=== PATIENT | female | born 1950 | race Caucasian/White ===

== ENCOUNTER 2017-02-09 12:59 | Emergency (ER) | payer BC ==
[~2017-02-09] VITALS: Ht 170.2 cm; Wt 91.6 kg
--- NOTE | 2017-02-09 13:50 | PHYS DOC ---
Past Medical History Past Medical History: Arthritis, Other Additional Past Medical Histor: RA Past Surgical History: , Hysterectomy, Other Additional Past Surgical Histo: right finger joint implant, deviated septum repair Alcohol Use: Rarely Drug Use: None Adult General Chief Complaint Chief Complaint: ANKLE PROBLEM HPI HPI 66-year-old female presenting to the emergency department today after sustaining injury to her right leg. She was previously seen at [facility] and diagnosed with a trimalleolar fracture status post reduction and splinting. She has pain in her right ankle that is sharp moderate worse with movement and alleviated by rest. Review of systems is negative for chest pain shortness of breath abdominal pain or knee pain. All other review of systems is negative unless otherwise noted in history of present illness. Review of Systems Review of Systems SEE ABOVE. Allergies Allergies Allergies Coded Allergies Type Severity Reaction Last Updated Verified Penicillins Allergy Intermediate hives 02/09/17 Yes Physical Exam Physical Exam Constitutional: Well developed, well nourished, no acute distress, non-toxic appearance. HENT: Normocephalic, atraumatic, bilateral external ears normal, oropharynx moist, no oral exudates, nose normal. Eyes: PERRLA, EOMI, conjunctiva normal, no discharge. [] Neck: Normal range of motion, no tenderness, supple, no stridor. Cardiovascular:Heart rate regular rhythm, no murmur Lungs & Thorax: Bilateral breath sounds clear to auscultation [] Abdomen: Bowel sounds normal, soft, no tenderness, no masses, no pulsatile masses. [] Skin: Warm, dry, no erythema, no rash. Back: No tenderness, no CVA tenderness. Extremities: The patient's right lower extremity is warm and well perfused with a palpable pulse. 2 second cap refill present. The patient currently has a splint on her right lower ankle. The patient's extremity is in anatomic alignment. Nontender knee proximally. Neurologic: Alert and oriented X 3, normal motor function, normal sensory function, no focal deficits noted. Psychologic: Affect normal, judgement normal, mood normal. [] Current Patient Data Vital Signs Vital Signs Date Time Temp Pulse Resp B/P Pulse Ox O2 Delivery O2 Flow Rate FiO2 02/09/17 13:02 98.8 108 18 174/77 98 Room Air 98.8 EKG EKG [] Radiology/Procedures Radiology/Procedures [] Course & Med Decision Making Course & Med Decision Making Pertinent Labs and Imaging studies reviewed. (See chart for details) [] 66-year-old female who sustained a right trimalleolar fracture who is currently is neurovascularly intact. I discussed the case with Doctor Yanet. He asked that I obtained postreduction films and stated he would see the patient. Postreduction films were obtained in the emergency department from reduction performed at outside facility obtained. Doctor Yanet had not evaluated the patient prior to the patient being signed out at 3 PM with plans to follow-up on his recommendations. Dragon Disclaimer Dragon Disclaimer This electronic medical record was generated, in whole or in part, using a voice recognition dictation system. Departure Departure Impression: Primary Impression: Closed right trimalleolar fracture Referrals: ELISA PEÑA II, MD Patient Instructions: Trimalleolar Fracture, Ankle, Adult, Displaced (ORIF) Problem Qualifiers Primary Impression: Closed right trimalleolar fracture Encounter type: initial encounter Qualified Code: S82.851A - Displaced trimalleolar fracture of right lower leg, initial encounter for closed fracture LAST ZULUAGA MD Feb 09, 2017 13:50
--- NOTE | 2017-02-09 14:44 | RAD ---
Right ankle, 3 views, 02/09/2017, 2:31 PM: History: Post reduction evaluation Comparison is made to a study from earlier the same day from [facility]. A radiopaque splint is now in place. There is persistent lateral subluxation of the talus relative the articular surface of the distal tibia. There is moderate unchanged lateral displacement of the major medial malleolar fracture fragment. There is mild unchanged lateral angulation of the major distal fibular fracture fragment. A posterior malleolar fracture is also again noted. IMPRESSION: No significant change in alignment of the right trimalleolar fracture/subluxation since earlier in the day.
[2017-02-09] MEDS ORDERED: MORPHINE SULFATE 4 MG/ML DISP.SYRIN. IV ONE (15:45)
[2017-02-09] MEDS ORDERED: DIAZEPAM 10 MG/2 ML DISP.SYRIN. IV ONE (15:45)
--- NOTE | 2017-02-09 16:52 | RAD ---
Indication post reduction. AP and lateral views of the right ankle were obtained and are compared to a study 2 hours earlier. Trimalleolar fracture is again seen. There has been partial reduction of previously identified tibial talar dislocation. A splint is noted
[2017-02-09] MEDS ORDERED: MORPHINE SULFATE 2 MG/ML DISP.SYRIN. IV ONE (17:00)
[2017-02-09] MEDS ORDERED: DOCU-27 PO (17:04)
[2017-02-09] MEDS ORDERED: HYDR-971 PO (17:04)
[2017-02-09 18:12] VITALS: BP 177/81
--- NOTE | 2017-02-10 01:04 | CONS ---
DATE OF CONSULTATION: REFERRING PROVIDER: . CONSULTING PROVIDER: Chung Peña M.D. REASON FOR CONSULTATION: Right ankle fracture dislocation. CHIEF COMPLAINT: Right ankle pain. HISTORY OF PRESENT ILLNESS: The patient is a very pleasant 66-year-old female who missed a couple of steps carrying heavy load of laundry today in her house. This happened this morning. She was seen in an outside institution, transferred here for management. She was splinted at the outside institution. She tells me that it hurt while they were putting the splint on, but otherwise she is doing quite well. She has a history of rheumatoid arthritis, she only takes Celebrex for this. Her pain is worse with any movement of her ankle, but tolerable at rest. She can wiggle her toes. She denies any pain elsewhere. Denies hitting her head or any preceding symptoms. REVIEW OF SYSTEMS: Negative except as per HPI. PAST MEDICAL HISTORY: Rheumatoid arthritis. PAST SURGICAL HISTORY: , hysterectomy, nasal surgery, right index PIP joint surgery after trauma. SOCIAL HISTORY: She occasionally uses alcohol. She lives with family, no smoking. FAMILY HISTORY: Noncontributory. MEDICATIONS: Reviewed. Please see MRAD. PHYSICAL EXAMINATION: GENERAL: The patient is alert and oriented, in no acute distress. She is examined lying in hospital stretcher. HEENT: Head normocephalic, atraumatic. Extraocular muscles are intact. CARDIOVASCULAR: Regular rate and rhythm. LUNGS: Respirations are unlabored with symmetric chest rise. No edema at her left ankle. Dorsalis pedis 2+ and symmetric bilaterally. ABDOMEN: Soft and nondistended. EXTREMITIES: Examination of both upper extremities reveals full pain free range of motion in all joints except for her right index PIP joint where she has a permanent varus deformity and decreased motion. Examination of bilateral lower extremities reveals a large amount of edema and absence of wrinkles and with ecchymosis circumferentially around her ankle. Sensation intact to light touch throughout medial and lateral foot and first web space. EHL and FHL 5/5. She is tender globally around her ankle. No tenderness elsewhere in her foot. No tenderness around her knee. IMAGING: X-rays at an outside institution were reviewed and reveal trimalleolar ankle fracture-dislocation. IMPRESSION: Closed right ankle fracture-dislocation. PLAN: I did discuss giving her IV pain medicine, sedative and performing reduction maneuver. I did discuss doing this in a propofol and she would really prefer to be awake. We will discharge her from the ER today. I did discuss nonweightbearing and keeping her foot elevated. I will see her back in my clinic later this week to assess her soft tissues and discuss surgical intervention at that time. CHUNG PEÑA MD DR: NURIA/clovis JOB#: [id number] / [id number] JARRETT
== END 2017-02-09 17:30 | disposition home or self-care (01) ==
LOC: ER 12:59
DX: S82.851A Displaced trimalleolar fracture of right lower leg, initial encounter for closed fracture (principal); M06.9 Rheumatoid arthritis, unspecified; Z88.0 Allergy status to penicillin; X58.XXXA Exposure to other specified factors, initial encounter; Y93.89 Activity, other specified; Y92.89 Other specified places as the place of occurrence of the external cause; Y99.8 Other external cause status
CPT/HCPCS: 73600; 73610; 96374; 96375; 96376; 99284; J2270; J3360

== ENCOUNTER 2017-02-16 11:07 | Day surgery (SDC) | payer BC ==
[~2017-02-16] VITALS: Ht 170.2 cm; Wt 90.7 kg
[~2017-02-16 11:07] MED LIST: CLINDAMYCIN 900MG PREMIX 50 ML IV PRN; DOCU-27 PO; FENTANYL PF 100 MCG/2 ML VIAL. IV PRN; HYDR-971 PO; HYDROmorphone 2 MG/ML VIAL IV PRN; IV RINGERS,LACTATED 1000ML 1,000 ML IV SCH; LIDOCAINE 1% 1 ML SYRINGE. ID PRN; MORPHINE SULFATE 2 MG/ML DISP.SYRIN. IV PRN; ONDANSETRON PF 4 MG/2 ML VIAL. IV PRN; PROCHLORPERAZINE 10 MG/2 ML VIAL. IV PRN
[2017-02-16] MEDS ORDERED: LIDOCAINE 2% 100 MG/5 ML SYRINGE. ONE (11:32)
[2017-02-16] MEDS ORDERED: FAMOTIDINE 20 MG/2 ML VIAL ONE (11:32)
[2017-02-16] MEDS ORDERED: DEXAMETHASONE SOD PHOS 20 MG/5 ML VIAL. ONE (11:32)
[2017-02-16] MEDS ORDERED: ONDANSETRON PF 4 MG/2 ML VIAL. ONE (11:32)
[2017-02-16] MEDS ORDERED: PROPOFOL 20 ML IV ONE (11:33)
[2017-02-16] MEDS ORDERED: FENTANYL PF 100 MCG/2 ML VIAL. ONE (11:35)
[2017-02-16] MEDS ORDERED: MIDAZOLAM HCL/PF 2 MG/2 ML VIAL. ONE (11:35)
[2017-02-16] MEDS ORDERED: ROCURONIUM 50 MG/5 ML VIAL. ONE (11:35)
[2017-02-16] MEDS ORDERED: CHOL2000 PO (11:38)
[2017-02-16] MEDS ORDERED: CELE200C PO (11:38)
[2017-02-16] MEDS ORDERED: MULT-208 PO (11:38)
--- NOTE | 2017-02-16 11:55 | DISCH ---
DISCHARGE INSTRUCTIONS Condition on Discharge Condition on Discharge: Stable Activity After Discharge Activity Instructions for Disc: Other, see below Weight Bearing Status after Di: Non weight bearing Diet after Discharge Diet after Discharge: Regular Wound Incision Care Wound/Incision Care: Ice to area for comfort, Keep wound/cast CDI, Keep wound elevated, Do not change dressing Contacting the DRZakiya after DC Call your doctor for: Concerns you may have Follow-Up Follow up with: Yanet in 2wks ELISA PEÑA II, MD Feb 16, 2017 11:55
[2017-02-16] MEDS ORDERED: BUPIVACAINE MPF 0.5% 30 ML VIAL. ONE (11:56)
[2017-02-16] MEDS ORDERED: LIDOCAINE 1% 20 ML VIAL. ONE (11:57)
--- NOTE | 2017-02-16 12:00 | PDOC ---
BRIEF OPERATIVE NOTE Date: Feb 16, 2017 Pre-Op Diagnosis R bimall ankle fx/dislocation Post-Op Diagnosis same Procedure Performed ORIF R bimall ankle fx Surgeon Yanet Drywall Application Supervisor Ally Anesthesiologist Jamin Anesthesia Type: General, Local Complications none ELISA PEÑA II, MD Feb 16, 2017 12:00
[2017-02-16] MEDS ORDERED: SCOPOLAMINE 1.5MG PATCH. TD ONE (13:00)
[2017-02-16] MEDS ORDERED: KETOROLAC 60 MG/2 ML INJ FOR OR. ONE (13:07)
[2017-02-16] MEDS ORDERED: ESMOLOL 100 MG/10 ML VIAL. IV ONE (13:41)
[2017-02-16] MEDS ORDERED: HYDROCODONE/APAP 5/325MG TABLET. PO ONE (14:45)
[2017-02-16] MEDS ORDERED: ONDA4TAB10 SL (14:50)
[2017-02-16] MEDS ORDERED: SCOP1PAT TP (14:52)
[2017-02-16 15:28] VITALS: BP 145/70
--- NOTE | 2017-02-16 20:00 | OP ---
DATE OF SURGERY: 02/16/2017 SURGEON: Chung Peña M.D. SUPERVISOR H[employer] MILL: Piper Canales. ANESTHESIA: General plus local. PREOPERATIVE DIAGNOSIS: Closed displaced right ankle trimalleolar fracture. POSTOPERATIVE DIAGNOSIS: Closed displaced right ankle trimalleolar fracture. PROCEDURE PERFORMED: Open reduction and internal fixation, bimalleolar ankle fracture. COMPONENTS INSERTED: 1. Gross and Nephew 1/3 tubular 8-hole plate. 2. Two 4.0 mm cannulated screws medially. ESTIMATED BLOOD LOSS: 10 mL. TOURNIQUET TIME: 30 minutes. COMPLICATIONS: None. FINDINGS: The patient has stable external rotation stress test intraoperatively. REASON FOR PROCEDURE: The patient is a very pleasant 66-year-old female who sustained a twisting injury to her right ankle last week and underwent closed reduction in the Emergency Department, was seen by myself. Her soft tissues have recovered well and I had seen her at the end of last week to proceed with planning definitive fixation and therefore we had a discussion of risks, benefits, alternatives of the above surgery and she elected to proceed. DESCRIPTION OF PROCEDURE: The patient was greeted in the preoperative area by myself. Correct extremity was marked and verified. She was taken to the operative suite and antibiotics were started en route. Once in the OR, she was transferred supine to the OR table and secured to the bed with all pressure points padded and had successful induction of general anesthesia. We then placed a nonsterile tourniquet to her right thigh as well as a bump under her right hip. We then proceeded to prep and drape right lower extremity in our usual sterile fashion including [place] over the toes. I then exsanguinated the extremity with an Esmarch and insufflated the tourniquet to 250 mmHg. I then palpated her surface anatomy and made plan to izaiah for a curvilinear incision over medial malleolus and straight incision over her distal fibular centered over the fracture site. I incised the skin laterally and dissected subcutaneous tissue with electrocautery. She had a large amount of hematoma and hemorrhage and soft tissues. I incised fascia in line with the skin incision. I identified the fracture site. We used self-retaining retractors at the skin and Homans' around the fibula. I debrided the fracture site with a metal tip sucker and a dental pick. She did have a comminuted fracture, I was able to oliveira in a portion of the cortex laterally and sized my plate to confirm good reduction and plate position under triplanar fluoroscopic imaging and then proceeded to place one screw proximal and distal to the fracture site to secure the plate to the bone. I then took images again and was happy with my reduction and hardware position. I then filled the rest of the holes accepted to centered over the fracture site. I then directed my attention to the medial malleolus, made my incision, and dissected subcutaneous tissue with the [place] and cauterized a couple bleeders. I identified the medial malleolar fracture site and used a dental pick to distract it and I debrided it with curette and metal tip sucker. I then irrigated out the joint with normal saline. I directed my attention to her medial malleolus , it reduced pretty well. I then brought in C-arm to help guide placed my threaded pins with my cannulated screws and placed 2 and felt that they were too convergent so I placed another one more anteriorly and was happy with those. I then measured and drilled the near cortex and then placed my 2 screws under hand power. I then removed the threaded pins and took my final images and performed an external rotation stress test. I did feel that her posterior malleolus was large enough to warrant fixation and I left it alone. After this, the wounds were thoroughly irrigated with sterile normal saline and tourniquet was let down. There were some bleeding at skin edges, but nothing down deep within the fracture site. I closed fascia laterally with simple interrupted 0 Vicryl. Inverted interrupted 2-0 was used for the medial and lateral subcutaneous tissue and 2-0 nylon in a mattress fashion was used for skin. I injected approximately 25 mL of local anesthetic mixture into the paige-incisional areas. Then, cleansed and dried the right lower extremity placed Xeroform gauze and ABD laterally and sterile cast padding and then fashioned a well-padded AO splint with the foot plate. She was then awakened from anesthesia. She tolerated surgery well. Prior to completion of wound closure, all counts were reported correct x 2. No complications. Postop plan is to discharge her home today. She will be nonweightbearing. She will follow up with me in 2 weeks, sooner should problems arise. She will maintain the splint in place and then keep her right ankle elevated. At the conclusion of the surgery, she was awakened and transferred back to the recovery room cart and taken to PACU in stable and extubated condition. CHUNG PEÑA MD DR: NURIA/clovis JOB#: [id number] / [id number] JARRETT
--- NOTE | 2017-02-17 09:50 | ACF ---
CASIMIRO BUTLER 02/17/17 0950: Admit Criteria Forms Admit Criteria Forms Admit Criteria Forms MUSCULOSKELETAL DISEASE GRG Clinical Indications for Admission to Inpatient Care (Place 'X' for any and all applicable criteria): Hospital admission is needed for appropriate care of the patient because of 1 or more of the following: [X]I. Fracture, dislocation, or other musculoskeletal injury requiring inpatient care(medical) as indicated by 1 or more of the following(4)(5)(6)(7) [ ]a) Vertebral fracture requiring observation for instability or neurologic compromise (8) [ ]b) Compartment syndrome (proven or cannot be ruled out during observation level of care) (9) [ ]c) Limb-threatening injury [ ]d) Major injury requiring inpatient stabilization such as traction initiation or external fixation before internal fixation or closure of complex or open fracture [ ]e) Major injury requiring inpatient treatment after emergency or observation level care (as appropriate) [X]f) Severe pain requiring acute inpatient management [ ]g) Injury with suspicion of abuse or neglect (eg., child, dependent elderly) [ ]II. Newly diagnosed or suspected bone, joint, or orthopedic device infection (e.g., osteomyelitis, septic arthritis) needing 1 or more of the following(1)(2)(3) [ ]a) IV antibiotics that cannot be initiated in other than inpatient setting (e.g., patient too unstable or home infusion not available) [ ]b) Device removal or replacement [ ]c) Bone or soft tissue debridement [ ]d) Joint drainage (drain placement or repetitive aspirations) [ ]III. Severe rheumatologic disease (e.g., systemic lupus erythematosus, rheumatoid arthritis) with complications or comorbidities (Also use Optimal Recovery Care Criteria or General Recovery Criteria as appropriate on the basis of predominant condition), including 1 or more of the following( 10)(11)(12)(13) [ ]a) Severe infection (e.g., BUSINESS DEPARTMENT CHAIR infection, sepsis) (14) [ ]b) Respiratory complications, including 1 or more of the following : [ ]i) Pleural effusion with respiratory compromise [ ]ii) Pulmonary hypertension with congestive failure [ ]iii) Respiratory failure [ ]iv) Pulmonary hemorrhage (15) [ ]c) Hematologic disease, including 1 or more of the following: [ ]i) Coagulopathy with bleeding [ ]ii) Thrombosis with hypercoagulable state [ ]iii) Thrombotic thrombocytopenic purpura [ ]d) Cerebritis with seizures, psychosis, or other severe abnormalities [ ]e) Vertebral destruction with monitoring needed for cervical myelopathy& possible respiratory compromise [ ]f) Exacerbation that requires inpatient treatment (e.g., intravenous immunosuppression) (16) [ ]g) Acute renal failure [ ]h) Cerebritis with seizures, psychosis, Altered mental status, or other neurologic abnormalities [ ]i) Pericardial effusion with tamponade [ ]j) Vertebral destruction, with monitoring needed for cervical myelopathy and possible respiratory compromise [ ]IV. Severe vasculitis with complications or comorbidities (Also use Optimal Recovery Care Criteria General Recovery Criteria as appropriate on the basis of predominant condition), including 1 or more of the following(11)(12)(17)(18)(19)(20) [ ]a) Exacerbation that requires inpatient treatment (e.g., intravenous immunosuppression) (19)(21) [ ]b) Pulmonary hemorrhage (15) [ ]c) BUSINESS DEPARTMENT CHAIR vasculitis with seizures, psychosis, Altered mental status that is severe or persistent, or other severe abnormalities (22) [ ]d) Cerebral infarction [ ]e) Gastrointestinal ischemia [ ]f) Gangrene or threatened amputation [ ]g) Renal failure (16) [ ]h) Other significant complications of vasculitis ( eg., tissue or organ ischemia, organ dysfunction ) [ ]V. Severe myopathy as indicated by 1 or more of the following (28)(29) [ ]a) New onset of airway compromise or inability to swallow [ ]b) Respiratory deterioration with observation needed for impending respiratory failure [ ]c) Exacerbation that requires inpatient treatment (e.g., intravenous immunosuppression) [ ]. Severe crystal gout (arthropathy) indicated by 1 or more of the following (23)(24) [ ]a) Severe pain requiring acute inpatient management [ ]b) Exacerbation that requires inpatient treatment (e.g., intravenous treatment) [ ]VII.Rhabdomyolysis and 1 or more of the following (25)(26)(27) [ ]a) Acute renal failure [ ]b) Need for intravenous hydration after emergency or observation level care (as appropriate) [ ]c) Inability to maintain oral hydration [ ]d) Change in mental status [ ]e) Electrolyte abnormality that remains after emergency or observation level care (as appropriate) [ ]VIII Post amputation complication, as indicated by ANY ONE of the following [ ]a) Infection [ ]b) Dehiscence [ ]c) Myodesis failure [ ]IX. Severe pain requiring acute inpatient management due to musculoskeletal condition [ ]X. Musculoskeletal Disease and ALL of the following: [ ]a) Symptom or finding for which emergency and observation care have failed or are not considered appropriate (Use General Criteria: Observation Care as appropriate) [ ]b) Presence of ANY ONE of the following [ ]i) A General Admission Criteria [ ]ii) A Pediatric General Admission Criteria The original [facility] [employer] content created by [facility] [employer] has been revised. The portions of the content which have been revised are identified through the use of italic text or in bold, and [facility] has neither reviewed nor approved the modified material. All other unmodified content is copyright [facility] [employer]. Please see references footnoted in the original [facility] edition 2016 ELISA PEÑA II, MD 02/17/17 1305: Admit Criteria Forms Admit Criteria Forms Admit Criteria Forms Patient was discharged home, outpatient surgery CASIMIRO BUTLER Feb 17, 2017 09:50 ELISA PEÑA II, MD Feb 17, 2017 13:05
== END 2017-02-16 15:58 | disposition home or self-care (01) ==
LOC: SURG 11:07
PROVIDERS: ATTEND Orthopaedic Surgery Sports Medicine
DX: S82.841A Displaced bimalleolar fracture of right lower leg, initial encounter for closed fracture (principal); Z90.710 Acquired absence of both cervix and uterus; Z72.89 Other problems related to lifestyle; Z90.722 Acquired absence of ovaries, bilateral; Z98.41 Cataract extraction status, right eye; Z98.42 Cataract extraction status, left eye
CPT/HCPCS: 27814; 76000; J1100; J1885; J2250; J2405; J2704; J3010; J3490; S0028; A4215; C1713

== ENCOUNTER → 2017-03-04 | Day surgery (SDC) | payer BC ==
[~2017-03-04] VITALS: Ht 170.2 cm; Wt 90.7 kg
[~2017-03-04] MED LIST changes: +BUPIVACAINE MPF 0.5% 30 ML VIAL. ONE; +CELE200C PO; +CHOL2000 PO; +DEXAMETHASONE SOD PHOS 20 MG/5 ML VIAL. ONE; -FENTANYL PF 100 MCG/2 ML VIAL. IV PRN; +LIDOCAINE 1% 20 ML VIAL. ONE; +LIDOCAINE 2% 100 MG/5 ML SYRINGE. ONE; +MULT-208 PO; +ONDA4TAB10 SL; +ONDANSETRON PF 4 MG/2 ML VIAL. ONE; +OXYC-323 PO; +PROPOFOL 20 ML IV ONE; +SCOP1PAT TP; +SCOPOLAMINE 1.5MG PATCH. TD ONE; +SEVOFLURANE 31 TO 60 MINUTES. IH ONE; +SULF1TAB23 PO; +fentaNYL PF VIAL 100 MCG/2 ML VIAL IV PRN; +fentaNYL PF VIAL 100 MCG/2 ML VIAL ONE; +oxyCODONE/APAP 5/325 1 TAB TABLET PO ONE
--- NOTE | 2017-03-04 13:04 | PDOC ---
BRIEF OPERATIVE NOTE Date: March 04, 2017 Pre-Op Diagnosis R ankle medial wound dehiscence after ORIF bimall Post-Op Diagnosis same Procedure Performed Primary wound closure, I and D, hardware removal Surgeon Yanet Able Seaman Ally Anesthesiologist Dez Anesthesia Type: General Blood Loss 10mL Complications none ELISA EPÑA II, MD March 04, 2017 13:04
--- NOTE | 2017-03-04 14:29 | DISCH ---
DISCHARGE INSTRUCTIONS Condition on Discharge Condition on Discharge: Stable Activity After Discharge Activity Instructions for Disc: Other, see below Bathing Instructions: Shower-keep dressing dry Weight Bearing Status after Di: Non weight bearing Diet after Discharge Diet after Discharge: Regular Wound Incision Care Wound/Incision Care: Ice to area for comfort, Keep wound/cast CDI, Keep wound elevated, Do not change dressing Contacting the DRZakiya after DC Call your doctor for: Concerns you may have Follow-Up Follow up with: Yanet in 6 days ELISA PEÑA II, MD March 04, 2017 14:29
[2017-03-04] MEDS: fentaNYL PF VIAL 100 MCG/2 ML VIAL IV PRN ×2 (14:39→14:59)
[2017-03-04 15:30] VITALS: BP 152/68
--- NOTE | 2017-03-04 19:04 | OP ---
DATE OF SURGERY: 03/04/2017 SURGEON: Chung Peña M.D. BEAMING MACHINE OPERATOR: None. PREOPERATIVE DIAGNOSIS: Wound dehiscence medially after open reduction and internal fixation, right bimalleolar ankle fracture. POSTOPERATIVE DIAGNOSIS: Wound dehiscence medially after open reduction and internal fixation, right bimalleolar ankle fracture. PROCEDURES PERFORMED: 1. Primary wound closure of wound 2 cm x 1.5 cm. 2. Irrigation and debridement down to bone. 3. Hardware removal of #1, the medial malleolar screws. TOURNIQUET TIME: None used. ESTIMATED BLOOD LOSS: 200 mL. REASON FOR PROCEDURE: The patient is a very pleasant 66-year-old diabetic with rheumatoid arthritis who underwent ORIF of her right ankle fracture dislocation with myself, approximately 2 weeks ago. I had seen her yesterday for her first followup and after taking the splint off, there was exposed hardware down deep at her medial ankle. There was a wound over this area. Her incision had dehisced a little as well and the new wound was adjacent to the mid portion of the incision anteriorly. Her lateral skin had healed well without any erythema, fluctuance, or sign of dehiscence. We had discussion of risks, benefits, alternatives of the above procedure and she elected to proceed to the OR. DESCRIPTION OF PROCEDURE: The patient was greeted in the preoperative area by myself. Correct extremity was marked and verified. She was taken back to the operative suite and antibiotics were started once she was in the OR. Once in the OR, she had successful induction of general anesthesia and then was transferred gently supine to the OR table and secured to the bed with all pressure points were padded. We then proceeded to prep and drape right lower extremity with Betadine paint. We then conducted a standard preoperative timeout. I began the procedure by removing the prominent screw through the wound. I did not feel any motion at the medial malleolus fracture fragment. I then used a scalpel to debride the edge superiorly where there was some necrotic debris at this wound; the final wound measurements were 2 x 1.5 cm. I then used a curette around this wound bed as well as into the screw hole. There was a good bleeding at the skin edge and from the screw hole. I then took cultures at all of these areas and then used a hemostat to free up some subcutaneous tissue in a full-thickness fashion superiorly to allow for some mobility. I felt that the tissue mobility would be adequate for primary wound closure and after irrigating out with close to 2000 mL of sterile normal saline, I then closed the wound with 2-0 nylon in a horizontal mattress fashion and supplemented this with 2 other simple interrupted 2-0 nylon; this brought the skin edges together well. There was no blanching, and I did not feel there was any tension. We then cleansed and dried her upper extremity and placed Xeroform followed by gauze and a well-padded AO splint. After allowing this to harden, she was awakened from anesthesia, transferred supine to the recovery room cart and taken to PACU in stable and extubated condition. Postop plan is to discharge her nonweightbearing. We will see her back in 1 week for a wound check. We will send out on Bactrim and follow up on the wound cultures. CHUNG PEÑA MD DR: NURIA/clovis JOB#: [id number] / [id number] JARRETT
== END | disposition home or self-care (01) ==
LOC: SURG 11:59
PROVIDERS: ATTEND Orthopaedic Surgery Sports Medicine
DX: T84.89XA Other specified complication of internal orthopedic prosthetic devices, implants and grafts, initial encounter (principal); T81.30XA Disruption of wound, unspecified, initial encounter; Y83.8 Other surgical procedures as the cause of abnormal reaction of the patient, or of later complication, without mention of misadventure at the time of the procedure; Z98.41 Cataract extraction status, right eye; Z98.42 Cataract extraction status, left eye; Z90.722 Acquired absence of ovaries, bilateral; Z87.39 Personal history of other diseases of the musculoskeletal system and connective tissue
CPT/HCPCS: 20680; 87205; J0780; J1100; J2405; J2704; J3010; 87071; 87075; J3490

== ENCOUNTER 2019-12-07 08:52 | Day surgery (SDC) | payer MEDICARE, BC ==
[~2019-12-07] VITALS: Ht 170.2 cm; Wt 90.2 kg
[~2019-12-07 08:52] MED LIST changes: -BUPIVACAINE MPF 0.5% 30 ML VIAL. ONE; -DEXAMETHASONE SOD PHOS 20 MG/5 ML VIAL. ONE; +DOCU-109 PO; -DOCU-27 PO; +HYDR-3164 PO; -HYDR-971 PO; -LIDOCAINE 1% 1 ML SYRINGE. ID PRN; -LIDOCAINE 1% 20 ML VIAL. ONE; +LIDOCAINE 1% PF 2 ML VIAL. ID PRN; -LIDOCAINE 2% 100 MG/5 ML SYRINGE. ONE; -MORPHINE SULFATE 2 MG/ML DISP.SYRIN. IV PRN; +MORPHINE SULFATE 2 MG/ML VIAL. IV PRN; -ONDANSETRON PF 4 MG/2 ML VIAL. ONE; -OXYC-323 PO; +OXYC1TAB15 PO; -PROPOFOL 20 ML IV ONE; -SCOP1PAT TP; +SCOP1PAT11 TP; -SCOPOLAMINE 1.5MG PATCH. TD ONE; -SEVOFLURANE 31 TO 60 MINUTES. IH ONE; -fentaNYL PF VIAL 100 MCG/2 ML VIAL ONE; -oxyCODONE/APAP 5/325 1 TAB TABLET PO ONE
[2019-12-07] MEDS ORDERED: ALEN70TA3 PO (09:15)
[2019-12-07] MEDS ORDERED: SCOPOLAMINE 1.5MG PATCH. TD ONE ×2 (09:26)
[2019-12-07] MEDS ORDERED: PROPOFOL 20 ML IV ONE (10:22)
[2019-12-07] MEDS ORDERED: fentaNYL PF VIAL 100 MCG/2 ML VIAL ONE (10:22)
[2019-12-07] MEDS ORDERED: LIDOCAINE 2% PF 5 ML VIAL. ONE (10:22)
[2019-12-07] MEDS ORDERED: MIDAZOLAM HCL/PF 2 MG/2 ML VIAL. ONE (10:22)
[2019-12-07] MEDS ORDERED: ONDANSETRON PF 4 MG/2 ML VIAL. ONE (10:22)
[2019-12-07] MEDS ORDERED: DEXAMETHASONE SOD PHOS 4 MG/ML VIAL ONE (10:22)
--- NOTE | 2019-12-07 10:33 | DISCH ---
DISCHARGE INSTRUCTIONS Condition on Discharge Condition on Discharge: Stable Activity After Discharge Activity Instructions for Disc: Other, see below Other activity instructions: okay to weight-bear as tolerated, no athletics or exercises for 6 weeks Bathing Instructions: Shower-keep dressing dry Weight Bearing Status after Di: As tolerated, Non weight bearing Diet after Discharge Diet after Discharge: Regular Wound Incision Care Wound/Incision Care: Ice to area for comfort, Keep wound/cast CDI, Keep wound elevated, Change dressing, Do not change dressing Other wound/incision instructi: okay to change dressing after 2-3 days Contacting the [facility] after DC Call your doctor for: Concerns you may have Follow-Up Follow up with: Yanet in 2 weeks ELISA PEÑA II, MD Dec 07, 2019 10:33
[2019-12-07] MEDS ORDERED: LIDOCAINE 1% PF 30 ML VIAL. ONE (11:00)
[2019-12-07] MEDS ORDERED: LIDOCAINE 1% Multi-Dose 20 ML VIAL. ONE (11:00)
[2019-12-07] MEDS ORDERED: BUPIVACAINE MPF 0.5% 30 ML VIAL. ONE (11:00)
[2019-12-07] MEDS ORDERED: SEVOFLURANE 16 TO 30 MINUTES. IH ONE (11:37)
--- NOTE | 2019-12-07 11:42 | PDOC4 ---
Operative Note Operative Note Date of procedure: 12/07/2019 Surgeon: Chung Peña Asst.: Gil Blair, certified ophthalmic medical technician Preoperative diagnosis: Painful hardware right medial ankle Postoperative diagnosis: Same Procedure performed: Removal of deep hardware and bony prominence from medial right ankle Complications: none Anesthesia: Gen. Tourniquet time: 17min Blood loss: 5ml Reason for procedure: Patient is a very pleasant female who had performed ORIF of her ankle fracture couple years ago. She developed a painful bump over the medial right ankle and presented to my outpatient clinic. Clinical and radiographic examination were consistent with the preoperative diagnoses and after discussion of the risks, benefits, and alternatives she wished to proceed with surgery. Description of procedure: Patient was greeted in the preoperative area by myself for the correct extremity was verified and marked. She was taken back to the operative suite and her antibiotics were started as she was brought back. Once the operative room, she was transferred gently supine to the operative room table and secured the bed with all pressure points padded. Nonsterile tourniquet was taped in place to her right upper thigh. We then proceeded prep and drape right lower extremity are usual sterile fashion and conducted our standard preoperative timeout. I then exsanguinated the extremity with an Esmarch and insufflated tourniquet to 250 mmHg. After this, I incised skin through the prior skin incision, using scalpel, electrocautery used for deeper dissection and hemostasis. Metzenbaums were used to dissect as well. After this, identified the bony prominence in the screw head, I used a Rongeur to take down the prominent bone. I removed the fibrotic tissue and bone from the screw head and delivered the screw from the operative field. After this, the operative bello thoroughly irrigated out. Tourniquet was let down and hemostasis was ensured. After this, subcutaneous tissues tissue was closed with inverted interrupted 2-0 Vicryl followed by 2-0 nylon in a mattress fashion. The paige-incisional area was infiltrated with local anesthetic. The area was cleansed and dried and a sterile bulky soft dressing was applied. Patient was awakened from surgery, she tolerated this well. No complications. All counts correct 2 prior to wound closure. At the conclusion, she was awakened and transferred gently supine to the recovery room cart and taken to the PACU in a stable and extubated condition. Postoperative plan is discharge her home, okay to weight-bear as tolerated, she will refrain from exercise and athletics. Wound care was discussed with her and her . I will see him back in 2 weeks, sooner should a problem arise. CHUNG PEÑA II, MD Dec 07, 2019 11:42
[2019-12-07] MEDS ORDERED: DOCU-109 PO (11:59)
[2019-12-07] MEDS ORDERED: HYDR-3164 PO (12:00)
[2019-12-07] MEDS ORDERED: ONDA8TAB9 PO (12:01)
[2019-12-07] MEDS ORDERED: HYDROcodone/APAP 5/325MG 1 TAB TABLET ONE (12:10)
[2019-12-07] MEDS ORDERED: HYDROcodone/APAP 5/325MG 1 TAB TABLET PO ONE (12:15)
[2019-12-07 12:20] VITALS: BP 131/68
== END 2019-12-07 12:47 | disposition home or self-care (01) ==
LOC: SURG 08:52
PROVIDERS: ATTEND Orthopaedic Surgery Sports Medicine
DX: T84.84XA Pain due to internal orthopedic prosthetic devices, implants and grafts, initial encounter (principal); E66.9 Obesity, unspecified; Z68.31 Body mass index [BMI] 31.0-31.9, adult; Y83.8 Other surgical procedures as the cause of abnormal reaction of the patient, or of later complication, without mention of misadventure at the time of the procedure; Y92.89 Other specified places as the place of occurrence of the external cause; Z90.710 Acquired absence of both cervix and uterus; Z90.722 Acquired absence of ovaries, bilateral; Z72.89 Other problems related to lifestyle
CPT/HCPCS: 20680; 76000; J1100; J2001; J2250; J2405; J2704; J3010; J3490; A7015